=== PATIENT | female | born 1985 | race Caucasian/White ===

== ENCOUNTER 2023-04-09 12:23 | Emergency (ER) | payer BC ==
[~2023-04-09] VITALS: Ht 152.4 cm; Wt 93.0 kg
[2023-04-09 12:35] VITALS: BP 143/98; PULSE 96; RESP 15; TEMP 98.4
--- NOTE | 2023-04-09 13:01 | NUR ---
37 YO F PRESENTS W/EPIGASTRIC PAIN SINCE 0230AM, INTERMITTENT SHARP PAIN. PT DENIES N,V,D, FEVER, CHILLS, ABD INJURY, FLU SYMPTOMS, SHERIDAN. SAFETY MAINTAINED. HX:CHOLECYSTECTOMY
[2023-04-09] MEDS ORDERED: DICYCLOMINE HCL LIQUID 20 MG, ALUMINUM HYD/MAG/SIMETHICONE 30 ML, LIDOCAINE VISCOUS 2% ... PO ONE ×3 (13:05)
[2023-04-09] MEDS ORDERED: DICYCLOMINE HCL LIQUID 10 MG/5 ML UDC ONE (13:14)
[2023-04-09] MEDS ORDERED: ALUMINUM HYD/MAG/SIMETHICONE 30 ML UDC ONE (13:14)
[2023-04-09 13:21] LABS: BASOPHILS % (AUTO) 0.4 % (0.0-2.0); EOSINOPHILS # (AUTO) 0.1 K/uL (0-0.4); EOSINOPHILS % (AUTO) 1.2 % (0.0-4.0); HEMATOCRIT 35.4 % (36-48); HEMOGLOBIN 11.4 g/dL (12.0-16.0); LYMPHOCYTES % (AUTO) 16.2 % (20.5-51.1); MEAN CORPUSCULAR HEMOGLOBIN 26 pg (27-31); MEAN CORPUSCULAR HGB CONC 32 g/dL (33-37); MEAN CORPUSCULAR VOLUME 80.8 fL (80-94); MONOCYTES # (AUTO) 0.6 K/uL (0.8-1.0); MONOCYTES % (AUTO) 9.7 % (1.7-9.3); NEUTROPHILS # (AUTO) 4.4 K/uL (1.8-7.7); NEUTROPHILS % (AUTO) 72.5 % (42.2-75.2); PLATELET COUNT (AUTO) 249 K/uL (140-450); RED BLOOD CELL COUNT(AUTO) 4.38 MIL/uL (4.20-5.40); RED CELL DISTRIBUTION WIDTH 14.8 % (11.6-13.7); WHITE BLOOD COUNT (AUTO) 6.1 K/uL (4.8-10.8)
[2023-04-09 13:42] LABS: ALBUMIN 3.3 g/dL (3.4-5.0); ANION GAP 12.3 (8-16); CARBON DIOXIDE 25.5 mmol/L (21-32); CREATININE 0.7 mg/dL (0.6-1.3); POTASSIUM 3.8 mmol/L (3.5-5.1); TOTAL BILIRUBIN 0.4 mg/dL (0.0-1.0)
[2023-04-09] MEDS ORDERED: OMEP40EC23 PO (14:04)
--- NOTE | 2023-04-09 14:13 | NUR ---
Patient discharged with v/s stable. Written and verbal after care instructions given and explained. Patient alert, oriented and verbalized understanding of instructions. Ambulatory with steady gait. All questions addressed prior to discharge. ID band removed. Patient advised to follow up with PMD. Rx of OMEPRAZOLE given. Patient educated on indication of medication including possible reaction and side effects. Opportunity to ask questions provided and answered.
--- NOTE | 2023-04-09 14:15 | NUR ---
The patient's care was reviewed and supervised by [place] [facility], RN.
--- NOTE | 2023-04-09 14:27 | NUR ---
Patient discharged with v/s stable. Written and verbal after care instructions given and explained. Patient verbalized understanding. Ambulatory with steady gait. All questions addressed prior to discharge. Advised to follow up with PMD.
== END 2023-04-09 14:27 | disposition home or self-care (01) ==
LOC: MED 12:23
DX: K29.70 Gastritis, unspecified, without bleeding (principal); I10 Essential (primary) hypertension; Z79.899 Other long term (current) drug therapy; Z90.49 Acquired absence of other specified parts of digestive tract
CPT/HCPCS: 36415; 80053; 81002; 81025; 83690; 85025; 93005; 99284

== ENCOUNTER 2023-08-03 06:20 | Emergency (ER) | payer BC ==
[~2023-08-03] VITALS: Ht 152.4 cm; Wt 93.0 kg
[~2023-08-03 06:20] MED LIST: OMEP40EC23 PO
[2023-08-03 06:29] VITALS: BP 140/90; PULSE 92; RESP 18; TEMP 97.9; O2SAT 99
[2023-08-03 06:46] VITALS: BP 165/104; TEMP 98.1
[2023-08-03 06:55] VITALS: PULSE 81; RESP 14; O2SAT 99
== END 2023-08-03 06:35 | disposition home or self-care (01) ==
LOC: MED 06:20
DX: S41.132A Puncture wound without foreign body of left upper arm, initial encounter (principal); I10 Essential (primary) hypertension; Z79.899 Other long term (current) drug therapy; W57.XXXA Bitten or stung by nonvenomous insect and other nonvenomous arthropods, initial encounter; Y93.89 Activity, other specified; Y92.89 Other specified places as the place of occurrence of the external cause; Y99.8 Other external cause status
CPT/HCPCS: 99282